=== PATIENT | female | born 1950 | race Hispanic/Latino ===

== ENCOUNTER 2018-12-29 08:51 | Outpatient (CLI) | payer MEDICARE | END 2018-12-29 08:52 | disposition home or self-care (01) | LOC: RAD 08:51 | DX: N18.3 Chronic kidney disease, stage 3 (moderate) (principal); N20.0 Calculus of kidney ==

== ENCOUNTER 2018-12-30 08:48 | Outpatient (CLI) | payer MEDICARE | END 2018-12-30 08:49 | disposition home or self-care (01) | LOC: LAB 08:48 ==

== ENCOUNTER 2018-12-31 08:23 | Outpatient (CLI) | payer MEDICARE | END 2018-12-31 08:24 | disposition home or self-care (01) | LOC: LAB 08:23 ==